=== PATIENT | female | born 1980 ===

== ENCOUNTER 2018-11-07 11:11 | Inpatient (IN) | payer OTHER ==
[~2018-11-07] VITALS: Ht 162.6 cm; Wt 55.3 kg
[~2018-11-07 11:11] MED LIST: ACYCLOVIR800 MG PO; AMOX1TAB12 PO; ZOFRAN4 MG PO; [UNRECOGNIZED DRUG - OTHER]; [UNRECOGNIZED DRUG - OTHER]
[2018-11-10] MEDS ORDERED: CIRUELAX PO (08:04)
[2018-11-13] MEDS ORDERED: HYOSCYAMINE0.125 M1 PO (11:39)
[2018-11-13] MEDS ORDERED: CODE1TAB37 PO (11:39)
[2018-11-13] MEDS ORDERED: IBUPROFEN800 MG PO (11:40)
[2018-11-13] MEDS ORDERED: FAMOTIDINE20 MG PO (11:40)
== END 2018-11-13 12:22 | disposition home or self-care (01) | DRG 743 ==
LOC: SURH 11-10 07:00 → O/R 11-10 07:41 → OB/GYN 11-10 07:41 → SURH 11-10 10:02 → OB/GYN 11-10 11:38
PROVIDERS: ADMIT Obstetrics & Gynecology
PROC: 0UB90ZZ Excision of Uterus, Open Approach (ICD-10-PCS; principal; 2018-11-10 07:00)
DX: D25.1 Intramural leiomyoma of uterus (principal)

== ENCOUNTER 2019-03-22 00:22 | Emergency (ER) | payer OTHER ==
[~2019-03-22] VITALS: Ht 152.4 cm; Wt 54.4 kg
[~2019-03-22 00:22] MED LIST changes: +CIRUELAX PO; +CODE1TAB37 PO; +FAMOTIDINE20 MG PO; +HYOSCYAMINE0.125 M1 PO; +IBUPROFEN800 MG PO
[2019-03-22] MEDS ORDERED: GILTUSS TR TAB1 EACH (00:34)
[2019-03-22] MEDS ORDERED: LEVAQUIN500 MG (00:35)
[2019-03-22] MEDS ORDERED: CIMETIDINE300 MG (00:35)
[2019-03-22] MEDS ORDERED: TERCONAZOLE45 GM (00:36)
[2019-03-22] MEDS ORDERED: TUSSIONEX PENN115 ML PO (05:40)
[2019-03-22] MEDS ORDERED: KETO10TA2 PO ×3 (05:41→05:42)
== END 2019-03-22 06:11 | disposition home or self-care (01) ==
LOC: ER 00:22
DX: J40 Bronchitis, not specified as acute or chronic (principal); R10.2 Pelvic and perineal pain

== ENCOUNTER 2019-03-24 12:59 | Emergency (ER) | payer OTHER ==
[~2019-03-24] VITALS: Ht 162.6 cm; Wt 54.4 kg
[~2019-03-24 12:59] MED LIST changes: +CIMETIDINE300 MG; +GILTUSS TR TAB1 EACH; +KETO10TA2 PO; +LEVAQUIN500 MG; +TERCONAZOLE45 GM; +TUSSIONEX PENN115 ML PO
[2019-03-24] MEDS ORDERED: PROAIR HFA8.5 GM (13:11)
== END 2019-03-24 13:53 | disposition home or self-care (01) ==
LOC: ER 12:59
DX: J06.9 Acute upper respiratory infection, unspecified (principal)

== ENCOUNTER 2020-01-01 05:42 | Emergency (ER) | payer OTHER ==
[~2020-01-01] VITALS: Ht 162.6 cm; Wt 53.1 kg
[~2020-01-01 05:42] MED LIST changes: +PROAIR HFA8.5 GM
[2020-01-01] MEDS ORDERED: ACIDO FOLICO (06:00)
== END 2020-01-01 11:10 | disposition home or self-care (01) ==
LOC: ER 05:42
DX: R10.31 Right lower quadrant pain (principal)

== ENCOUNTER → 2020-01-13 | Emergency (ER) | payer OTHER ==
[~2020-01-13] VITALS: Ht 152.4 cm; Wt 53.1 kg
[~2020-01-13] MED LIST changes: +ACIDO FOLICO; +CIRUELAX; +CLINDAMYCIN HC150 MG PO; +INTESTINEX680 M1 PO; +PERCOCET 5-3251 EACH
== END | disposition home or self-care (01) ==
LOC: ER 00:01
DX: L08.89 Other specified local infections of the skin and subcutaneous tissue (principal)